=== PATIENT | female | born 1990 | race Caucasian/White ===

== ENCOUNTER 2018-02-23 15:30 | Outpatient (RCR) | payer BC | END 2018-03-06 | disposition home or self-care (01) | LOC: PTY 15:30 | DX: S93.401D Sprain of unspecified ligament of right ankle, subsequent encounter (principal); M67.01 Short Achilles tendon (acquired), right ankle; M67.02 Short Achilles tendon (acquired), left ankle; M76.822 Posterior tibial tendinitis, left leg ==